=== PATIENT | female | born 1935 | race Caucasian/White ===

== ENCOUNTER 2016-08-05 09:38 | Outpatient (CLI) | payer MEDICARE, OTHER ==
[2016-08-05 11:02] LABS: eGFR (African) > 60; eGFR (Non-African) > 60
== END 2016-08-05 09:40 ==
LOC: INF 09:38
PROVIDERS: ATTEND Family Medicine
DX: C85.90 Non-Hodgkin lymphoma, unspecified, unspecified site (principal); I10 Essential (primary) hypertension; E03.9 Hypothyroidism, unspecified
CPT/HCPCS: 36415; 80053; 84443; J1642; 96523

== ENCOUNTER 2016-09-09 07:58 | Outpatient (CLI) | payer MEDICARE, OTHER ==
[2016-09-09] MEDS ORDERED: HEPARIN SODIUM,PORCINE 30 UNITS INJ IV ONE (08:00)
[2016-09-09] MEDS ORDERED: SALINE FLUSH 10 ML DISP.SYRIN IVF ONE (08:00)
== END 2016-09-09 08:00 ==
LOC: INF 07:58
PROVIDERS: ATTEND Family Medicine
DX: C85.90 Non-Hodgkin lymphoma, unspecified, unspecified site (principal); E03.9 Hypothyroidism, unspecified; I10 Essential (primary) hypertension
CPT/HCPCS: 96523

== ENCOUNTER 2016-10-15 08:59 | Outpatient (CLI) | payer MEDICARE, OTHER | END 2016-10-15 09:00 | LOC: LAB 08:59 | PROVIDERS: ATTEND Family Medicine | DX: E03.9 Hypothyroidism, unspecified (principal) | CPT/HCPCS: 36415; 84443 ==